=== PATIENT | female | born 1995 | race Asian ===

== ENCOUNTER 2017-03-15 23:21 | Emergency (ER) | payer MEDICAID ==
[~2017-03-15] VITALS: Ht 167.6 cm; Wt 84.0 kg
[2017-03-16] MEDS ORDERED: SODIUM CHLORIDE 0.9% 1,000 ML IV ONE (02:16)
[2017-03-16] MEDS ORDERED: ONDANSETRON HCL 4MG/2ML VIAL IV STA (02:16)
[2017-03-16] MEDS ORDERED: KETOROLAC 30MG/ML VIAL IV STA (02:16)
[2017-03-16 02:36] LABS: BASOPHILS % 0.5 % (0.0-2.0); EOSINOPHILS % 0.8 % (0.0-5.0); HEMATOCRIT. 38.7 % (36.0-48.0); HEMOGLOBIN. 13.2 g/dL (12.0-16.0); LYMPHOCYTES % 16.7 % (20.0-50.0); MEAN CORPUSCULAR HEMOGLOBIN 30.5 pg (28.0-32.0); MEAN CORPUSCULAR VOLUME 89.6 fL (81.0-99.0); MEAN PLATELET VOLUME 9.7 fl (7.4-10.4); MONOCYTES % 9.7 % (2.0-8.0); NEUTROPHILS % 72.3 % (40.0-76.0); PLATELET 192 x1000/uL (130-400); RED BLOOD CELL COUNT 4.32 mill/uL (4.2-5.4); RED CELL DISTRIBUTION WIDTH 14.6 % (11.6-14.6)
[2017-03-16 03:03] LABS: INR 1.2
[2017-03-16 03:18] LABS: COLOR URINE YELLOW (YELLOW)
[2017-03-16 03:19] LABS: GLUCOSE URINE NEGATIVE (NEGATIVE); KETONES URINE 1+ (NEGATIVE); LEUKOCYTE ESTERASE URINE NEGATIVE (NEGATIVE); NITRITE URINE NEGATIVE (NEGATIVE); OCCULT BLOOD URINE 3+ (NEGATIVE); PROTEIN URINE TRACE (NEGATIVE); SPECIFIC GRAVITY URINE 1.043 (1.005-1.030)
[2017-03-16 03:20] LABS: CLARITY URINE SL HAZY (CLEAR)
[2017-03-16 03:24] LABS: CARBON DIOXIDE 23 mEq/L (21-32); CHLORIDE 105 mEq/L (98-107)
[2017-03-16] MEDS ORDERED: POTASSIUM CHLORIDE 20MEQ TABLET SR PO ONE (03:45)
[2017-03-16] MEDS ORDERED: MORPHINE SULFATE 4 MG/ML CPJ (NOT FOR IM USE) IV ONE (03:45)
[2017-03-16 04:36] VITALS: BP 129/90
[2017-03-16] MEDS ORDERED: ONDANSETRON HCL 4MG/2ML VIAL IV ONE (05:30)
== END 2017-03-16 05:45 | disposition home or self-care (01) ==
LOC: ER 03-16 05:15
DX: R10.11 Right upper quadrant pain (principal); Z88.0 Allergy status to penicillin; Z88.8 Allergy status to other drugs, medicaments and biological substances; Z88.2 Allergy status to sulfonamides
CPT/HCPCS: 36415; 74176; 76705; 80053; 81001; 81025; 83690; 85025; 85610; 96361; 96374; 96375; 96376; 99285; J1885; J2270; J2405; Z7610; J7030

== ENCOUNTER 2017-09-14 15:41 | Emergency (ER) | payer MEDICAID, OTHER ==
[~2017-09-14] VITALS: Ht 167.6 cm; Wt 65.0 kg
[2017-09-14] MEDS: ONDANSETRON HCL 4MG/2ML VIAL IV STA (18:30)
[2017-09-14] MEDS: SODIUM CHLORIDE 0.9% 1,000 ML IV ONE (18:30)
[2017-09-14] MEDS: MORPHINE SULFATE 10 MG/ML CPJ IV NR (18:40)
[2017-09-14] MEDS: DIPHENHYDRAMINE 50MG/ML VIAL IV ONE (18:45)
[2017-09-14 18:58] LABS: BASOPHILS % 0.4 % (0.0-2.0); EOSINOPHILS % 0.2 % (0.0-5.0); HEMATOCRIT. 41.8 % (36.0-48.0); HEMOGLOBIN. 13.3 g/dL (12.0-16.0); LYMPHOCYTES % 16.2 % (20.0-50.0); MEAN CORPUSCULAR HEMOGLOBIN 25.4 pg (28.0-32.0); MEAN CORPUSCULAR VOLUME 79.7 fL (81.0-99.0); MEAN PLATELET VOLUME 10.2 fl (7.4-10.4); MONOCYTES % 8.3 % (2.0-8.0); NEUTROPHILS % 74.9 % (40.0-76.0); PLATELET 208 x1000/uL (130-400); RED BLOOD CELL COUNT 5.24 mill/uL (4.2-5.4); RED CELL DISTRIBUTION WIDTH 20.6 % (11.6-14.6)
[2017-09-14 19:07] LABS: CHLORIDE 103 mEq/L (98-107)
[2017-09-14 19:13] LABS: CARBON DIOXIDE 24 mEq/L (21-32); ETHANOL BLOOD < 10 mg/dL
[2017-09-14 19:17] LABS: HCG SCREEN NEGATIVE
[2017-09-14 19:37] LABS: CLARITY URINE TURBID (CLEAR); COLOR URINE DARK YELLOW (YELLOW); KETONES URINE 1+ (NEGATIVE); LEUKOCYTE ESTERASE URINE 1+ (NEGATIVE); NITRITE URINE NEGATIVE (NEGATIVE); OCCULT BLOOD URINE NEGATIVE (NEGATIVE); PH URINE 5.5 (4.5-8.0); PROTEIN URINE 1+ (NEGATIVE); SPECIFIC GRAVITY URINE 1.033 (1.005-1.030)
[2017-09-14] MEDS ORDERED: IOHEXOL-300 100 ML BOTTLE ONE (20:05)
[2017-09-14 20:59] VITALS: BP 131/77
[2017-09-14] MEDS: KETOROLAC 30MG/ML VIAL IV STA (20:59)
[2017-09-14] MEDS: CEFTRIAXONE 1 G PREMIX 50 ML IV ONE (21:00)
[2017-09-14] MEDS: DIPHENHYDRAMINE 25MG CAPSULE PO ONE (21:00)
== END 2017-09-14 21:44 | disposition home or self-care (01) ==
LOC: ER 16:12
DX: K29.00 Acute gastritis without bleeding (principal); N39.0 Urinary tract infection, site not specified; B37.9 Candidiasis, unspecified; F32.9 Major depressive disorder, single episode, unspecified; Z88.0 Allergy status to penicillin; Z88.2 Allergy status to sulfonamides; Z88.8 Allergy status to other drugs, medicaments and biological substances
CPT/HCPCS: 36415; 74177; 80053; 81001; 83690; 84703; 85025; 96361; 96374; 96375; 99285; G0482; J0696; J1200; J1885; J2270; J2405; J7030; Q9967; Z7610; Q0163

== ENCOUNTER 2017-11-10 01:20 | Emergency (ER) | payer MEDICAID, OTHER ==
[~2017-11-10] VITALS: Ht 167.6 cm; Wt 64.0 kg
[2017-11-10] MEDS ORDERED: FAMOTIDINE 20MG/2ML VIAL IV STA (03:08)
[2017-11-10] MEDS ORDERED: SODIUM CHLORIDE 0.9% 1,000 ML IV ONE (03:08)
[2017-11-10] MEDS ORDERED: KETOROLAC 30MG/ML VIAL IV STA (03:08)
[2017-11-10] MEDS ORDERED: DIPHENHYDRAMINE 50MG/ML VIAL IV ONE ×2 (03:15→07:30)
[2017-11-10 04:07] LABS: BASOPHILS % 0.3 % (0.0-2.0); EOSINOPHILS % 1.8 % (0.0-5.0); HEMATOCRIT. 35.2 % (36.0-48.0); LYMPHOCYTES % 8.6 % (20.0-50.0); MEAN CORPUSCULAR HEMOGLOBIN 25.2 pg (28.0-32.0); MEAN CORPUSCULAR VOLUME 80.3 fL (81.0-99.0); MEAN PLATELET VOLUME 8.9 fl (7.4-10.4); MONOCYTES % 7.6 % (2.0-8.0); NEUTROPHILS % 81.7 % (40.0-76.0); PLATELET 201 x1000/uL (130-400); RED BLOOD CELL COUNT 4.38 mill/uL (4.2-5.4); RED CELL DISTRIBUTION WIDTH 18.4 % (11.6-14.6)
[2017-11-10 04:20] LABS: CHLORIDE 107 mEq/L (98-107)
[2017-11-10] MEDS ORDERED: MORPHINE SULFATE 4 MG/ML CPJ (NOT FOR IM USE) IV ONE ×2 (04:30→07:30)
[2017-11-10] MEDS ORDERED: ONDANSETRON HCL 4MG/2ML VIAL IV ONE (04:30)
[2017-11-10] MEDS ORDERED: POTASSIUM CHLORIDE 20MEQ TABLET SR PO ONE ×2 (05:15→08:00)
[2017-11-10] MEDS ORDERED: ONDANSETRON 4MG ODT PO STA (10:35)
[2017-11-10] MEDS ORDERED: MAGNESIUM/ALUMINUM HYDROXIDE/SIMETHICONE 30ML UDC PO STA (10:35)
[2017-11-10 10:48] LABS: CLARITY URINE CLOUDY (CLEAR); COLOR URINE YELLOW (YELLOW); KETONES URINE TRACE (NEGATIVE); LEUKOCYTE ESTERASE URINE 1+ (NEGATIVE); NITRITE URINE NEGATIVE (NEGATIVE); OCCULT BLOOD URINE TRACE (NEGATIVE); PH URINE 5.5 (4.5-8.0); PROTEIN URINE TRACE (NEGATIVE); SPECIFIC GRAVITY URINE 1.031 (1.005-1.030); UROBILINOGEN URINE 0.2 E.U./dL (0.2-1.0)
[2017-11-10] MEDS ORDERED: LIDOCAINE HCL 1% 20ML VIAL (Pyxis) INJ INFIL ONE (11:30)
[2017-11-10] MEDS ORDERED: HYDROXYZINE 25MG TABLET PO ONE (11:30)
[2017-11-10] MEDS ORDERED: CEFTRIAXONE SODIUM 500 MG/VIAL IM ONE (11:30)
[2017-11-10] MEDS ORDERED: LIDOCAINE HCL/PF 1% 10 MG/ML 5ML VIAL IJ ONE (11:45)
[2017-11-10 12:05] LABS: *AMPHETAMINES SCREEN URINE NEGATIVE (NEGATIVE); *BENZODIAZEPINES SCREEN URINE NEGATIVE (NEGATIVE); *COCAINE SCREEN URINE NEGATIVE (NEGATIVE); METHADONE URINE SCREEN NEGATIVE (NEGATIVE); PHENCYCLIDINE URINE SCREEN NEGATIVE (NEGATIVE)
[2017-11-10 12:08] LABS: *BARBITURATES SCREEN URINE PRESUMTIVE POSITIVE (NEGATIVE); CANNABINOID URINE SCREEN PRESUMTIVE POSITIVE (NEGATIVE); OPIATES URINE SCREEN PRESUMTIVE POSITIVE (NEGATIVE)
[2017-11-10] MEDS ORDERED: KETOROLAC 15MG/ML VIAL IV ONE (17:00)
[2017-11-10 18:03] VITALS: BP 123/71
== END 2017-11-10 18:11 | disposition home or self-care (01) ==
LOC: ER 01:20
DX: R10.13 Epigastric pain (principal); R45.851 Suicidal ideations; Z90.49 Acquired absence of other specified parts of digestive tract; Z88.0 Allergy status to penicillin; Z88.1 Allergy status to other antibiotic agents; Z88.2 Allergy status to sulfonamides
CPT/HCPCS: 36415; 74176; 76705; 80053; 80305; 81003; 81025; 83690; 85025; 87077; 87086; 87186; 96372; 96374; 96375; 96376; 99285; J0696; J1200; J1885; J2270; J2405; J3490; J7030; Q0162; Z7610

== ENCOUNTER 2017-12-23 10:18 | Emergency (ER) | payer OTHER ==
[~2017-12-23] VITALS: Ht 160 cm; Wt 60.0 kg
[2017-12-23] MEDS ORDERED: SODIUM CHLORIDE 0.9% 1,000 ML IV ONE (11:14)
[2017-12-23] MEDS ORDERED: DIPHENHYDRAMINE 50MG/ML VIAL IV ONE (11:30)
[2017-12-23] MEDS ORDERED: ONDANSETRON HCL 4MG/2ML VIAL IV ONE (11:30)
[2017-12-23] MEDS ORDERED: MORPHINE SULFATE 4 MG/ML CPJ (NOT FOR IM USE) IV ONE (11:30)
[2017-12-23] MEDS ORDERED: FAMOTIDINE 20MG/2ML VIAL IV ONE (11:30)
[2017-12-23 11:36] LABS: BASOPHILS % 0.7 % (0.0-2.0); EOSINOPHILS % 1.4 % (0.0-5.0); HEMATOCRIT. 35.1 % (36.0-48.0); LYMPHOCYTES % 23.3 % (20.0-50.0); MEAN CORPUSCULAR HEMOGLOBIN 23.8 pg (28.0-32.0); MEAN CORPUSCULAR VOLUME 76.3 fL (81.0-99.0); MEAN PLATELET VOLUME 9.4 fl (7.4-10.4); MONOCYTES % 10.3 % (2.0-8.0); NEUTROPHILS % 64.3 % (40.0-76.0); PLATELET 223 x1000/uL (130-400); RED CELL DISTRIBUTION WIDTH 18.4 % (11.6-14.6)
[2017-12-23 11:42] LABS: INR 1.1; PROTHROMBIN TIME 11.3 sec (9.4-11.6)
[2017-12-23 11:44] LABS: CHLORIDE 107 mEq/L (98-107)
[2017-12-23 11:53] LABS: HCG SCREEN NEGATIVE
[2017-12-23 12:32] LABS: CLARITY URINE CLOUDY (CLEAR); COLOR URINE YELLOW (YELLOW); KETONES URINE NEGATIVE (NEGATIVE); LEUKOCYTE ESTERASE URINE 2+ (NEGATIVE); NITRITE URINE NEGATIVE (NEGATIVE); OCCULT BLOOD URINE 2+ (NEGATIVE); PH URINE 5.5 (4.5-8.0); PROTEIN URINE NEGATIVE (NEGATIVE)
[2017-12-23 13:42] VITALS: BP 115/68
== END 2017-12-23 13:43 | disposition home or self-care (01) ==
LOC: ER 10:18
DX: N39.0 Urinary tract infection, site not specified (principal); Z90.49 Acquired absence of other specified parts of digestive tract; Z88.0 Allergy status to penicillin; Z88.2 Allergy status to sulfonamides
CPT/HCPCS: 36415; 80053; 81003; 83690; 84703; 85025; 85610; 96361; 96374; 96375; 99285; J1200; J2270; J2405; J3490; J7030; Z7610

== ENCOUNTER 2017-12-25 03:07 | Emergency (ER) | payer OTHER ==
[~2017-12-25] VITALS: Ht 162.6 cm; Wt 58.0 kg
[2017-12-25] MEDS ORDERED: SODIUM CHLORIDE 0.9% 1,000 ML IV ONE (05:07)
[2017-12-25] MEDS ORDERED: KETOROLAC 30MG/ML VIAL IV STA (05:07)
[2017-12-25] MEDS: DIPHENHYDRAMINE 25MG CAPSULE PO ONE ×2 (05:43→05:51)
[2017-12-25] MEDS ORDERED: ONDANSETRON HCL 4MG TABLET PO ONE (06:00)
[2017-12-25 06:09] LABS: CLARITY URINE CLOUDY (CLEAR); COLOR URINE YELLOW (YELLOW); KETONES URINE TRACE (NEGATIVE); LEUKOCYTE ESTERASE URINE TRACE (NEGATIVE); NITRITE URINE NEGATIVE (NEGATIVE); OCCULT BLOOD URINE NEGATIVE (NEGATIVE); PROTEIN URINE NEGATIVE (NEGATIVE); SPECIFIC GRAVITY URINE 1.022 (1.005-1.030)
[2017-12-25] MEDS ORDERED: MORPHINE SULFATE 4 MG/ML CPJ (NOT FOR IM USE) IV ONE (06:30)
[2017-12-25] MEDS ORDERED: MORPHINE SULFATE 2 MG/ML CPJ (NOT FOR IM USE) IV ONE (06:30)
[2017-12-25 06:37] LABS: BASOPHILS % 0.5 % (0.0-2.0); EOSINOPHILS % 0.9 % (0.0-5.0); HEMATOCRIT. 32.7 % (36.0-48.0); HEMOGLOBIN. 10.2 g/dL (12.0-16.0); LYMPHOCYTES % 17.4 % (20.0-50.0); MEAN CORPUSCULAR HEMOGLOBIN 23.8 pg (28.0-32.0); MEAN CORPUSCULAR VOLUME 76.1 fL (81.0-99.0); MEAN PLATELET VOLUME 9.4 fl (7.4-10.4); NEUTROPHILS % 73.2 % (40.0-76.0); PLATELET 211 x1000/uL (130-400); RED CELL DISTRIBUTION WIDTH 18.5 % (11.6-14.6)
[2017-12-25 06:40] LABS: CHLORIDE 109 mEq/L (98-107)
[2017-12-25 06:41] VITALS: BP 134/60
[2017-12-25 06:44] LABS: INR 1.1; PROTHROMBIN TIME 11.4 sec (9.4-11.6)
[2017-12-25] MEDS ORDERED: DIPHENHYDRAMINE 50MG/ML VIAL IV ONE (07:00)
== END 2017-12-25 07:28 | disposition home or self-care (01) ==
LOC: ER 03:07 → CANBEDREQ 09:35
DX: R10.30 Lower abdominal pain, unspecified (principal); Z76.5 Malingerer [conscious simulation]; Z90.49 Acquired absence of other specified parts of digestive tract; Z88.3 Allergy status to other anti-infective agents; Z88.0 Allergy status to penicillin; Z88.2 Allergy status to sulfonamides
CPT/HCPCS: 36415; 80053; 81003; 81025; 83690; 85025; 85610; 96361; 96374; 96375; 99284; J1200; J1885; J2270; J7030; Q0162; Q0163

== ENCOUNTER 2017-12-25 18:17 | Emergency (ER) | payer OTHER ==
[~2017-12-25] VITALS: Ht 165.1 cm; Wt 60.0 kg
[2017-12-25 18:24] VITALS: BP 130/80
== END 2017-12-25 23:56 | disposition left against medical advice (07) ==
LOC: ER 18:28
DX: Z53.21 Procedure and treatment not carried out due to patient leaving prior to being seen by health care provider (principal)

== ENCOUNTER 2018-01-20 03:23 | Emergency (ER) | payer OTHER ==
[~2018-01-20] VITALS: Ht 167.6 cm; Wt 56.0 kg
[2018-01-20] MEDS ORDERED: MORPHINE SULFATE 4 MG/ML CPJ (NOT FOR IM USE) IV STA (03:57)
[2018-01-20] MEDS ORDERED: ONDANSETRON HCL 4MG/2ML VIAL IV STA (03:57)
[2018-01-20] MEDS ORDERED: SODIUM CHLORIDE 0.9% 1,000 ML IV ONE (04:13)
[2018-01-20 04:16] LABS: CLARITY URINE CLOUDY (CLEAR); COLOR URINE YELLOW (YELLOW); KETONES URINE TRACE (NEGATIVE); LEUKOCYTE ESTERASE URINE TRACE (NEGATIVE); NITRITE URINE NEGATIVE (NEGATIVE); OCCULT BLOOD URINE NEGATIVE (NEGATIVE); PROTEIN URINE TRACE (NEGATIVE); SPECIFIC GRAVITY URINE 1.033 (1.005-1.030)
[2018-01-20 04:20] LABS: BASOPHILS % 0.7 % (0.0-2.0); HEMATOCRIT. 32.3 % (36.0-48.0); HEMOGLOBIN. 10.3 g/dL (12.0-16.0); MEAN CORPUSCULAR HEMOGLOBIN 23.6 pg (28.0-32.0); MEAN PLATELET VOLUME 9.7 fl (7.4-10.4); MONOCYTES % 11.8 % (2.0-8.0); NEUTROPHILS % 63.5 % (40.0-76.0); PLATELET 209 x1000/uL (130-400); RED BLOOD CELL COUNT 4.37 mill/uL (4.2-5.4)
[2018-01-20 04:27] LABS: CHLORIDE 113 mEq/L (98-107)
[2018-01-20 06:38] LABS: HCG SCREEN NEGATIVE
[2018-01-20] MEDS ORDERED: DIPHENHYDRAMINE 50MG/ML VIAL IV ONE (06:45)
[2018-01-20 07:05] VITALS: BP 111/74
== END 2018-01-20 07:18 | disposition left against medical advice (07) ==
LOC: ER 03:23
DX: R10.2 Pelvic and perineal pain (principal); R11.10 Vomiting, unspecified; Z88.0 Allergy status to penicillin; Z88.2 Allergy status to sulfonamides; Z88.8 Allergy status to other drugs, medicaments and biological substances
CPT/HCPCS: 36415; 76830; 76856; 80048; 81003; 84703; 85025; 96361; 96374; 96375; 99285; J1200; J2270; J2405; J7030; Z7610

== ENCOUNTER 2018-06-25 11:30 | Emergency (ER) | payer OTHER ==
[~2018-06-25] VITALS: Ht 167.6 cm; Wt 54.5 kg
[2018-06-25] MEDS ORDERED: MORPHINE SULFATE 4 MG/ML CPJ (NOT FOR IM USE) IV STA (11:49)
[2018-06-25] MEDS ORDERED: ONDANSETRON HCL 4MG/2ML INJ IV STA (11:49)
[2018-06-25] MEDS ORDERED: SODIUM CHLORIDE 0.9% 1,000 ML IV ONE (11:49)
[2018-06-25 12:24] LABS: BASOPHILS % 0.4 % (0.0-2.0); HEMATOCRIT. 34.4 % (36.0-48.0); HEMOGLOBIN. 10.6 g/dL (12.0-16.0); LYMPHOCYTES % 28.2 % (20.0-50.0); MEAN CORPUSCULAR HEMOGLOBIN 22.2 pg (28.0-32.0); MEAN CORPUSCULAR VOLUME 71.6 fL (81.0-99.0); MEAN PLATELET VOLUME 9.2 fl (7.4-10.4); MONOCYTES % 6.9 % (2.0-8.0); NEUTROPHILS % 63.5 % (40.0-76.0); PLATELET 229 x1000/uL (130-400); RED CELL DISTRIBUTION WIDTH 21.1 % (11.6-14.6)
[2018-06-25 12:31] LABS: CHLORIDE 107 mEq/L (98-107)
[2018-06-25 12:54] LABS: HCG SCREEN NEGATIVE
[2018-06-25] MEDS ORDERED: DIPHENHYDRAMINE 50MG CAPSULE PO ONE (13:00)
[2018-06-25] MEDS ORDERED: MORPHINE SULFATE 4 MG/ML CPJ (NOT FOR IM USE) IV ONE (13:00)
[2018-06-25 13:12] LABS: INR 1.1
[2018-06-25] MEDS ORDERED: POTASSIUM CHLORIDE 20MEQ TABLET SR PO NR (13:15)
[2018-06-25] MEDS ORDERED: DEXTROSE 50% WATER 50ML SYRINGE IV ONE (13:15)
[2018-06-25 14:07] VITALS: BP 111/57
== END 2018-06-25 14:00 | disposition left against medical advice (07) ==
LOC: ER 11:30
DX: Z76.5 Malingerer [conscious simulation] (principal); R10.13 Epigastric pain; D57.1 Sickle-cell disease without crisis; Z88.9 Allergy status to unspecified drugs, medicaments and biological substances; Z88.0 Allergy status to penicillin; Z88.2 Allergy status to sulfonamides; Z88.1 Allergy status to other antibiotic agents; Z90.49 Acquired absence of other specified parts of digestive tract
CPT/HCPCS: 36415; 71045; 80053; 83690; 84703; 85025; 85044; 85610; 96361; 96374; 96375; 96376; 99285; J2270; J2405; J7030; Z7610; Q0163

== ENCOUNTER 2018-06-30 00:42 | Emergency (ER) | payer MEDICAID, OTHER ==
[~2018-06-30] VITALS: Ht 165.1 cm; Wt 50.0 kg
[2018-06-30] MEDS ORDERED: ONDANSETRON HCL 4MG/2ML INJ IM ONE (02:45)
[2018-06-30] MEDS ORDERED: MORPHINE SULFATE 4 MG/ML CPJ (NOT FOR IM USE) IV ONE (02:45)
[2018-06-30 03:19] LABS: BASOPHILS % 0.7 % (0.0-2.0); EOSINOPHILS % 1.9 % (0.0-5.0); HEMATOCRIT. 31.9 % (36.0-48.0); HEMOGLOBIN. 10.1 g/dL (12.0-16.0); LYMPHOCYTES % 28.7 % (20.0-50.0); MEAN CORPUSCULAR HEMOGLOBIN 22.7 pg (28.0-32.0); MEAN CORPUSCULAR VOLUME 71.6 fL (81.0-99.0); MEAN PLATELET VOLUME 9.2 fl (7.4-10.4); MONOCYTES % 7.6 % (2.0-8.0); NEUTROPHILS % 61.1 % (40.0-76.0); PLATELET 214 x1000/uL (130-400); RED BLOOD CELL COUNT 4.46 mill/uL (4.2-5.4); RED CELL DISTRIBUTION WIDTH 21.7 % (11.6-14.6)
[2018-06-30 03:21] LABS: CLARITY URINE TURBID (CLEAR); COLOR URINE RED (YELLOW); KETONES URINE NEGATIVE (NEGATIVE); LEUKOCYTE ESTERASE URINE 1+ (NEGATIVE); NITRITE URINE NEGATIVE (NEGATIVE); OCCULT BLOOD URINE 3+ (NEGATIVE); PH URINE 7.5 (4.5-8.0); PROTEIN URINE 2+ (NEGATIVE); SPECIFIC GRAVITY URINE 1.022 (1.005-1.030)
[2018-06-30 03:26] LABS: INR 1.1; PROTHROMBIN TIME 10.7 sec (9.1-11.1)
[2018-06-30 03:27] LABS: CHLORIDE 107 mEq/L (98-107); HCG SCREEN NEGATIVE
[2018-06-30 03:47] LABS: *AMPHETAMINES SCREEN URINE NEGATIVE (NEGATIVE); *BARBITURATES SCREEN URINE NEGATIVE (NEGATIVE); *BENZODIAZEPINES SCREEN URINE NEGATIVE (NEGATIVE); *COCAINE SCREEN URINE NEGATIVE (NEGATIVE); METHADONE URINE SCREEN NEGATIVE (NEGATIVE); OPIATES URINE SCREEN NEGATIVE (NEGATIVE); PHENCYCLIDINE URINE SCREEN NEGATIVE (NEGATIVE)
[2018-06-30 03:49] LABS: CANNABINOID URINE SCREEN PRESUMTIVE POSITIVE (NEGATIVE)
[2018-06-30] MEDS ORDERED: HALOPERIDOL LACTATE 5MG/ML VIAL IM ONE (04:00)
[2018-06-30] MEDS ORDERED: CAPSAICIN 0.075% CREAM 60GM TOP PRN (04:15)
[2018-06-30] MEDS ORDERED: ACETAMINOPHEN 500MG TABLET PO ONE (04:15)
[2018-06-30 04:40] VITALS: BP 116/67
== END 2018-06-30 04:45 | disposition home or self-care (01) ==
LOC: ER 00:42
DX: N39.0 Urinary tract infection, site not specified (principal); I10 Essential (primary) hypertension; Z88.1 Allergy status to other antibiotic agents; Z88.2 Allergy status to sulfonamides; Z88.0 Allergy status to penicillin; Z88.8 Allergy status to other drugs, medicaments and biological substances; Z88.6 Allergy status to analgesic agent
CPT/HCPCS: 36415; 74176; 80053; 80305; 81003; 81025; 83605; 83690; 84703; 85025; 85044; 85610; 85660; 96372; 96374; 99285; J2270; J2405; Z7610

== ENCOUNTER 2018-07-24 08:28 | Emergency (ER) | payer OTHER ==
[~2018-07-24] VITALS: Ht 160 cm; Wt 60.0 kg
[2018-07-24] MEDS ORDERED: SODIUM CHLORIDE 0.9% 1,000 ML IV ONE (08:49)
[2018-07-24] MEDS ORDERED: MORPHINE SULFATE 4 MG/ML CPJ (NOT FOR IM USE) IV STA (08:49)
[2018-07-24] MEDS ORDERED: ONDANSETRON HCL 4MG/2ML INJ IV STA (08:49)
[2018-07-24 09:11] LABS: HEMATOCRIT. 31.8 % (36.0-48.0); HEMOGLOBIN. 9.7 g/dL (12.0-16.0); MEAN CORPUSCULAR VOLUME 72.3 fL (81.0-99.0); MEAN PLATELET VOLUME 9.1 fl (7.4-10.4); PLATELET 222 x1000/uL (130-400)
[2018-07-24 09:15] LABS: CHLORIDE 109 mEq/L (98-107)
[2018-07-24] MEDS ORDERED: DIPHENHYDRAMINE 50MG/ML VIAL IV ONE (09:15)
[2018-07-24 09:27] LABS: HCG SCREEN NEGATIVE
[2018-07-24 09:37] LABS: INR 1.1; PROTHROMBIN TIME 10.7 sec (9.1-11.1)
[2018-07-24] MEDS ORDERED: MORPHINE SULFATE 4 MG/ML CPJ (NOT FOR IM USE) IV ONE (10:00)
[2018-07-24 10:13] LABS: PLATELET ESTIMATE NORMAL
[2018-07-24 10:15] LABS: CLARITY URINE CLOUDY (CLEAR); COLOR URINE YELLOW (YELLOW); KETONES URINE NEGATIVE (NEGATIVE); LEUKOCYTE ESTERASE URINE 1+ (NEGATIVE); NITRITE URINE NEGATIVE (NEGATIVE); OCCULT BLOOD URINE 3+ (NEGATIVE); PH URINE 6.5 (4.5-8.0); PROTEIN URINE 1+ (NEGATIVE); SPECIFIC GRAVITY URINE 1.023 (1.005-1.030); UROBILINOGEN URINE 0.2 E.U./dL (0.2-1.0)
[2018-07-24 10:46] VITALS: BP 147/92
== END 2018-07-24 10:47 | disposition home or self-care (01) ==
LOC: ER 08:57
DX: R10.9 Unspecified abdominal pain (principal); D57.1 Sickle-cell disease without crisis; I10 Essential (primary) hypertension; D64.9 Anemia, unspecified; E16.2 Hypoglycemia, unspecified; Z88.6 Allergy status to analgesic agent; Z88.5 Allergy status to narcotic agent; Z88.0 Allergy status to penicillin; Z88.2 Allergy status to sulfonamides; Z90.49 Acquired absence of other specified parts of digestive tract
CPT/HCPCS: 36415; 71045; 80053; 81003; 81025; 83690; 84703; 85025; 85044; 85610; 85660; 96361; 96374; 96375; 96376; 99285; J1200; J2270; J2405; J7030

== ENCOUNTER 2018-08-14 16:16 | Emergency (ER) | payer MEDICAID, OTHER ==
[~2018-08-14] VITALS: Ht 162.6 cm; Wt 55.0 kg
[2018-08-14 16:19] VITALS: BP 105/60
== END 2018-08-14 19:30 | disposition left against medical advice (07) ==
LOC: ER 16:30
DX: Z53.21 Procedure and treatment not carried out due to patient leaving prior to being seen by health care provider (principal)

== ENCOUNTER 2018-09-12 21:48 | Emergency (ER) | payer OTHER ==
[~2018-09-12] VITALS: Ht 160 cm; Wt 56.0 kg
[2018-09-12] MEDS ORDERED: SODIUM CHLORIDE 0.9% 1,000 ML IV ONE (22:18)
[2018-09-12] MEDS ORDERED: ONDANSETRON HCL 4MG/2ML INJ IV STA (22:18)
[2018-09-12] MEDS ORDERED: MORPHINE SULFATE 10 MG/ML CPJ IV SCH (22:30)
[2018-09-12] MEDS ORDERED: MORPHINE SULFATE 10 MG/ML CPJ IV ONE (22:30)
[2018-09-12] MEDS ORDERED: MORPHINE SULFATE 2 MG/ML CPJ (NOT FOR IM USE) IV ONE (22:30)
[2018-09-12 22:44] LABS: CHLORIDE 108 mEq/L (98-107); CLARITY URINE TURBID (CLEAR); COLOR URINE ORANGE (YELLOW); KETONES URINE TRACE (NEGATIVE); LEUKOCYTE ESTERASE URINE 2+ (NEGATIVE); NITRITE URINE NEGATIVE (NEGATIVE); OCCULT BLOOD URINE 3+ (NEGATIVE); PROTEIN URINE 2+ (NEGATIVE); SPECIFIC GRAVITY URINE 1.031 (1.005-1.030)
[2018-09-12 22:48] LABS: ETHANOL BLOOD < 10 mg/dL; INR 1.1; PROTHROMBIN TIME 10.8 sec (9.1-11.1)
[2018-09-12 22:51] LABS: HCG SCREEN NEGATIVE
[2018-09-12 22:55] LABS: HEMATOCRIT. 30.5 % (36.0-48.0); HEMOGLOBIN. 9.3 g/dL (12.0-16.0); MEAN CORPUSCULAR HEMOGLOBIN 20.5 pg (28.0-32.0); MEAN CORPUSCULAR VOLUME 67.7 fL (81.0-99.0); MEAN PLATELET VOLUME 9.6 fl (7.4-10.4); PLATELET 231 x1000/uL (130-400); RED CELL DISTRIBUTION WIDTH 19.6 % (11.6-14.6)
[2018-09-12 23:04] LABS: *AMPHETAMINES SCREEN URINE NEGATIVE (NEGATIVE); *BARBITURATES SCREEN URINE NEGATIVE (NEGATIVE); *BENZODIAZEPINES SCREEN URINE NEGATIVE (NEGATIVE); *COCAINE SCREEN URINE NEGATIVE (NEGATIVE); METHADONE URINE SCREEN NEGATIVE (NEGATIVE)
[2018-09-12 23:05] LABS: PHENCYCLIDINE URINE SCREEN NEGATIVE (NEGATIVE)
[2018-09-12 23:11] LABS: CANNABINOID URINE SCREEN PRESUMTIVE POSITIVE (NEGATIVE); OPIATES URINE SCREEN PRESUMTIVE POSITIVE (NEGATIVE)
[2018-09-12 23:20] LABS: PLATELET ESTIMATE NORMAL
[2018-09-13] MEDS ORDERED: ACETAMINOPHEN 325MG TABLET PO ONE (00:15)
[2018-09-13] MEDS ORDERED: METOCLOPRAMIDE HCL 10MG/2ML VIAL IV ONE (00:15)
[2018-09-13 00:28] VITALS: BP 121/81
== END 2018-09-13 00:29 | disposition home or self-care (01) ==
LOC: ER 21:48
DX: R10.9 Unspecified abdominal pain (principal); I10 Essential (primary) hypertension; D57.1 Sickle-cell disease without crisis; Z88.0 Allergy status to penicillin; Z88.1 Allergy status to other antibiotic agents; Z88.2 Allergy status to sulfonamides; Z88.3 Allergy status to other anti-infective agents; Z88.6 Allergy status to analgesic agent; Z88.8 Allergy status to other drugs, medicaments and biological substances; Z86.73 Personal history of transient ischemic attack (TIA), and cerebral infarction without residual deficits
CPT/HCPCS: 36415; 71045; 80053; 80305; 81003; 81025; 83605; 83690; 84703; 85025; 85044; 85610; 93005; 96361; 96374; 96375; 99284; G0482; J2270; J2405; J7030; J2765

== ENCOUNTER 2019-04-15 06:31 | Emergency (ER) | payer MEDICAID, OTHER ==
[~2019-04-15] VITALS: Ht 162.6 cm; Wt 50.0 kg
[2019-04-15 10:22] VITALS: BP 125/80
== END 2019-04-15 10:23 | disposition home or self-care (01) ==
LOC: ER 06:31
DX: M77.9 Enthesopathy, unspecified (principal); I10 Essential (primary) hypertension; D57.1 Sickle-cell disease without crisis; Z86.73 Personal history of transient ischemic attack (TIA), and cerebral infarction without residual deficits; Z88.1 Allergy status to other antibiotic agents; Z88.2 Allergy status to sulfonamides; Z88.0 Allergy status to penicillin; Z88.3 Allergy status to other anti-infective agents; Z88.6 Allergy status to analgesic agent; Z88.8 Allergy status to other drugs, medicaments and biological substances
CPT/HCPCS: 99283

== ENCOUNTER 2019-06-03 22:48 | Emergency (ER) | payer MEDICAID ==
[~2019-06-03] VITALS: Ht 172.7 cm; Wt 62.0 kg
[2019-06-03] MEDS ORDERED: SODIUM CHLORIDE 0.9% 1,000 ML IV ONE (23:31)
[2019-06-03] MEDS ORDERED: IBUPROFEN 600MG TABLET PO STA (23:31)
[2019-06-03] MEDS ORDERED: ACETAMINOPHEN 325MG TABLET PO STA (23:31)
[2019-06-03] MEDS ORDERED: DIPHENHYDRAMINE 50MG/ML VIAL IM ONE (23:45)
[2019-06-04 01:55] VITALS: BP 103/51
== END 2019-06-04 02:00 | disposition home or self-care (01) ==
LOC: ER 22:48
DX: Z76.5 Malingerer [conscious simulation] (principal); G89.29 Other chronic pain; M54.89 Other dorsalgia; I10 Essential (primary) hypertension; D57.3 Sickle-cell trait; Z90.49 Acquired absence of other specified parts of digestive tract; Z86.73 Personal history of transient ischemic attack (TIA), and cerebral infarction without residual deficits; Z88.0 Allergy status to penicillin; Z88.2 Allergy status to sulfonamides; Z88.8 Allergy status to other drugs, medicaments and biological substances
CPT/HCPCS: 96372; 99283; J1200; J7030; Z7610

== ENCOUNTER 2019-06-04 19:31 | Emergency (ER) | payer MEDICAID ==
[~2019-06-04] VITALS: Ht 157.5 cm; Wt 59.0 kg
[2019-06-04] MEDS ORDERED: DIPHENHYDRAMINE 25MG CAPSULE PO ONE (23:00)
[2019-06-04] MEDS ORDERED: ACETAMINOPHEN 500MG TABLET PO ONE (23:00)
[2019-06-05 01:37] LABS: CLARITY URINE CLOUDY (CLEAR); COLOR URINE YELLOW (YELLOW); KETONES URINE 3+ (NEGATIVE); LEUKOCYTE ESTERASE URINE NEGATIVE (NEGATIVE); NITRITE URINE NEGATIVE (NEGATIVE); OCCULT BLOOD URINE NEGATIVE (NEGATIVE); PH URINE 5.5 (4.5-8.0); PROTEIN URINE TRACE (NEGATIVE); SPECIFIC GRAVITY URINE 1.016 (1.005-1.030); UROBILINOGEN URINE 0.2 E.U./dL (0.2-1.0)
[2019-06-05 02:50] VITALS: BP 140/77
== END 2019-06-05 02:51 | disposition home or self-care (01) ==
LOC: ER 19:34
DX: G89.29 Other chronic pain (principal); R10.9 Unspecified abdominal pain; Z76.5 Malingerer [conscious simulation]; R11.0 Nausea; F12.10 Cannabis abuse, uncomplicated; Z88.2 Allergy status to sulfonamides; Z88.6 Allergy status to analgesic agent; Z88.1 Allergy status to other antibiotic agents; Z88.0 Allergy status to penicillin; Z88.8 Allergy status to other drugs, medicaments and biological substances
CPT/HCPCS: 81003; 81025; 82962; 99283; Q0163

== ENCOUNTER 2025-08-26 03:32 | Emergency (ER) | payer MEDICAID ==
[~2025-08-26] VITALS: Ht 165.1 cm; Wt 72.6 kg
[~2025-08-26 03:32] MED LIST: BELI120V IV; DIPH-1205 PO; ERGO1250 PO; HYDR200T35 PO; LEVO750T68 MT; MYCO360T3 PO; ONDA-239 SL; PRED5TAB PO
[2025-08-26 03:35] VITALS: O2SAT 99
[2025-08-26] MEDS: SODIUM CHLORIDE 0.9% 1,000 ML IV ONE (04:35)
[2025-08-26] MEDS: DIPHENHYDRAMINE 50MG/ML VIAL IV ONE (04:42)
[2025-08-26] MEDS: MORPHINE SULFATE 4 MG/ML INJ (FOR IV/IM USE) IV ONE (04:43)
[2025-08-26] MEDS: ONDANSETRON HCL 4MG/2ML INJ IV ONE (04:43)
[2025-08-26 05:06] LABS: BASOPHILS % 0.8 % (0.0-2.0); EOSINOPHILS % 3.0 % (0.0-5.0); HEMATOCRIT. 27.8 % (36.0-48.0); HEMOGLOBIN. 7.8 g/dL (12.0-16.0); LYMPHOCYTES % 16.9 % (20.0-50.0); MONOCYTES % 7.9 % (2.0-8.0); NEUTROPHILS % 71.4 % (40.0-76.0); RED BLOOD CELL COUNT 4.47 mill/uL (4.2-5.4); RED CELL DISTRIBUTION WIDTH 26.1 % (11.6-14.6)
[2025-08-26 05:08] LABS: CREATININE 0.6 mg/dL (0.6-1.0); UREA NITROGEN BLOOD 8 mg/dL (9-23)
[2025-08-26 05:09] LABS: ADD RBC MORPHOLOGY YES; PROTEIN TOTAL 6.6 g/dL (6.0-8.3); TROPONIN I HIGH SENSITIVITY < 4 ng/L (3.0-34)
[2025-08-26 05:10] LABS: ASPARTATE AMINOTRANSFERASE 23 IU/L (<34); BILIRUBIN DIRECT < 0.1 mg/dL (<=3.0); BILIRUBIN TOTAL 0.2 mg/dL (0.1-1.0)
[2025-08-26 05:25] LABS: HCG SCREEN NEGATIVE
[2025-08-26 06:07] VITALS: O2SAT 100
[2025-08-26 06:35] VITALS: BP 127/65; PULSE 60; RESP 18; TEMP 36.5292
[2025-08-26 10:59] LABS: PLATELET ESTIMATE NORMAL
[2025-08-26 11:00] LABS: MEAN PLATELET VOLUME 9.2 fl (7.4-10.4); PLATELET 196 x1000/uL (130-400)
[2025-09-13] MEDS ORDERED: BUPR1TAB33 SL (00:46)
== END 2025-08-26 06:11 | disposition admitted as inpatient to this hospital (09) ==
LOC: ER 03:32 → 6EST 04:57 → UNDOADMIN 04:57 → EDBEDREQ 05:13 → EDBEDREQTM 05:13 → ENRESERV 05:21 → UNDODISIN 07:50
DX: M32.9 Systemic lupus erythematosus, unspecified (principal); Z53.29 Procedure and treatment not carried out because of patient's decision for other reasons; Z88.8 Allergy status to other drugs, medicaments and biological substances
CPT/HCPCS: 80076; 80048; 84703; 85025; 84484; 36415; 71045; 93005; 96361; 96374; 96375; 99285; J1200; J2405; J2270; J7030; Z7610

== ENCOUNTER 2025-09-12 20:09 | Emergency (ER) | payer MEDICAID ==
[~2025-09-12] VITALS: Ht 170.2 cm; Wt 66.0 kg
[2025-09-12] MEDS: FAMOTIDINE 20MG/2ML VIAL IV ONE (20:32)
[2025-09-12] MEDS: MORPHINE SULFATE 4 MG/ML INJ (FOR IV/IM USE) IV ONE ×2 (20:33→23:22)
[2025-09-12] MEDS: SODIUM CHLORIDE 0.9% 1,000 ML IV ONE (20:39)
[2025-09-12] MEDS: DIPHENHYDRAMINE 50MG/ML VIAL IV ONE ×3 (20:42→23:22)
[2025-09-12] MEDS: ONDANSETRON HCL 4MG/2ML INJ IV ONE (20:42)
[2025-09-12 20:57] LABS: HCG SCREEN NEGATIVE
[2025-09-12 20:59] LABS: CREATININE 0.8 mg/dL (0.6-1.0)
[2025-09-12 21:00] LABS: PROTEIN TOTAL 8.0 g/dL (6.0-8.3); UREA NITROGEN BLOOD 9 mg/dL (9-23)
[2025-09-12 21:01] LABS: ASPARTATE AMINOTRANSFERASE 32 IU/L (<34)
[2025-09-12 21:02] LABS: BILIRUBIN DIRECT < 0.1 mg/dL (<=3.0); BILIRUBIN TOTAL 0.3 mg/dL (0.1-1.0)
[2025-09-12 21:06] LABS: HEMATOCRIT. 31.4 % (36.0-48.0); HEMOGLOBIN. 8.5 g/dL (12.0-16.0); MEAN PLATELET VOLUME 9.9 fl (7.4-10.4); PLATELET 236 x1000/uL (130-400); RED BLOOD CELL COUNT 4.89 mill/uL (4.2-5.4); RED CELL DISTRIBUTION WIDTH 26.3 % (11.6-14.6)
[2025-09-12] MEDS: MORPHINE SULFATE 2 MG/ML INJ (NOT FOR IM USE) IV ONE (21:09)
[2025-09-12] MEDS: METHYLPREDNISOLONE SOD SUCC 125MG/2ML (ACT-O-VIAL) IV ONE (21:19)
[2025-09-12 22:09] LABS: EOSINOPHILS % MANUAL 1.0 % (0.0-5.0); LYMPHOCYTES % MANUAL 48.0 % (20.0-60.0); MONOCYTES % MANUAL 10.0 % (2.0-8.0); NEUTROPHILS % MANUAL 41.0 % (45.0-75.0); PLATELET ESTIMATE NORMAL
[2025-09-12] MEDS ORDERED: FERR1TAB91 MT (23:12)
[2025-09-12 23:40] VITALS: BP 155/82; PULSE 105; RESP 26; TEMP 37.1; O2SAT 95
[2025-09-13] MEDS ORDERED: BUPR1TAB33 SL (00:46)
== END 2025-09-12 23:53 | disposition home or self-care (01) ==
LOC: ER 20:09
DX: M32.14 Glomerular disease in systemic lupus erythematosus (principal); M79.10 Myalgia, unspecified site; D64.9 Anemia, unspecified; D57.3 Sickle-cell trait; Z79.624 Long term (current) use of inhibitors of nucleotide synthesis; Z79.52 Long term (current) use of systemic steroids; Z76.5 Malingerer [conscious simulation]; Z90.49 Acquired absence of other specified parts of digestive tract; Z79.899 Other long term (current) drug therapy; Z88.8 Allergy status to other drugs, medicaments and biological substances; Z88.2 Allergy status to sulfonamides; Z88.1 Allergy status to other antibiotic agents; Z88.0 Allergy status to penicillin
CPT/HCPCS: 99284; 96374; 96375; 80076; 80048; 84703; 83690; 85025; 36415; 96376; J2919; J1200; J1308; J2405; J2270 ×2; J7030